=== PATIENT | female | born 1990 | race Two or more races ===

== ENCOUNTER 2022-10-22 19:40 | Emergency (ER) | payer SELFPAY ==
[~2022-10-22] VITALS: Ht 157.5 cm; Wt 61.2 kg
--- NOTE | 2022-10-22 20:13 | NUR ---
BIBS. ABDOMINAL PAIN IN RLQ WHEN APPLYING PRESSURE, PAIN SINCE LAST NIGHT BUT FEELING BETTER NOW. CAME FROM URGENT CARE. A/OX4. ROOM AIR. TO BED 2. CONNECTED TO MONITOR.
--- NOTE | 2022-10-22 20:58 | NUR ---
phlebotimist at bedside. labs collected. urine collected and sent to lab
[2022-10-22 21:07] LABS: BILIRUBIN,URINE NEGATIVE (NEGATIVE); COLOR,URINE YELLOW (YELLOW); LEUKOCYTE ESTERASE ,URINE NEGATIVE (NEGATIVE); NITRITE, URINE NEGATIVE (NEGATIVE); PROTEIN,URINE NEGATIVE (NEGATIVE); UGLUCOSE NEGATIVE (NEGATIVE); UROBILINOGEN,URINE 0.2 EU/dL (0.2)
[2022-10-22 21:07] LABS: BASOPHILS % (AUTO) 0.6 % (0.0-2.0); EOSINOPHILS % (AUTO) 4.5 % (0.0-6.0); HEMATOCRIT 43 % (33-45); HEMOGLOBIN 13.8 g/dL (11.5-14.8); LYMPHOCYTES # (AUTO) 1.2 K/uL (0.8-4.8); LYMPHOCYTES % (AUTO) 32.9 % (20.0-44.0); MEAN CORPUSCULAR HGB CONC 32 g/dl (31.0-36.0); MEAN CORPUSCULAR VOLUME 95 fL (82-100); MONOCYTES # (AUTO) 0.3 K/uL (0.1-1.30); MONOCYTES % (AUTO) 8.8 % (2.0-12.0); NEUTROPHILS # (AUTO) 1.9 K/uL (1.8-8.9); NEUTROPHILS % (AUTO) 53.2 % (43.0-81.0); PLATELET COUNT (AUTO) 328 K/uL (150-450); RED BLOOD CELL COUNT(AUTO) 4.48 MIL/uL (4.0-5.2); WHITE BLOOD COUNT (AUTO) 3.5 K/uL (4.3-11.0)
[2022-10-22 21:26] LABS: BACTERIA,URINE Many /HPF (None Seen); RBC,URINE 0-2 /HPF (0-2); SQUAMOUS EPITHELIAL CELL,UR Many /HPF (None Seen); WBC,URINE NONE SEEN /HPF (0-3)
[2022-10-22 21:27] LABS: CALCIUM, SERUM 8.5 mg/dL (8.5-10.1); CREATININE 0.8 mg/dL (0.6-1.3); POTASSIUM 3.9 mmol/L (3.5-5.1)
[2022-10-22 21:33] LABS: ALBUMIN 3.6 g/dL (3.4-5.0); BILIRUBIN,DIRECT 0.1 mg/dL (0.0-0.2); BILIRUBIN,TOTAL 0.2 mg/dL (0.2-1.0); TOTAL PROTEIN, SERUM 6.6 g/dL (6.4-8.2)
--- NOTE | 2022-10-22 21:37 | NUR ---
PATIENT TAKEN TO CT
--- NOTE | 2022-10-22 21:47 | NUR ---
PATIENT BACK FROM CT
[2022-10-22] MEDS ORDERED: IBUP-1953 PO (22:16)
[2022-10-22 22:29] VITALS: BP 96/69
--- NOTE | 2022-10-22 22:29 | NUR ---
Patient discharged to home in stable condition. Written and verbal after care instructions given. Patient verbalizes understanding of instruction. ambulatory with a steady gait. RX sent electronically. all questions answered.
== END 2022-10-22 22:31 | disposition home or self-care (01) ==
LOC: ER 20:00
DX: K38.1 Appendicular concretions (principal); R10.9 Unspecified abdominal pain; F17.200 Nicotine dependence, unspecified, uncomplicated
CPT/HCPCS: 36415; 80048-TC; 80076-TC; 81001; 83690-TC; 84703-TC; 85025-TC; 87086-TC